=== PATIENT | female | born 1960 | race Caucasian/White ===

== ENCOUNTER 2019-08-25 14:16 | Emergency (ER) | payer MEDICARE, OTHER ==
[~2019-08-25] VITALS: Ht 165.1 cm; Wt 110.0 kg
[~2019-08-25 14:16] MED LIST: CHOL100010 PO; OMEP-84 PO; SIMV5TAB58 PO; ZES10T PO; [UNRECOGNIZED DRUG - CODE] PO
[2019-08-25 15:05] VITALS: BP 155/91
[2019-08-25] MEDS ORDERED: GABA-532 PO (16:03)
== END 2019-08-25 16:23 | disposition home or self-care (01) ==
LOC: ER 14:16
DX: G56.03 Carpal tunnel syndrome, bilateral upper limbs (principal); Z88.1 Allergy status to other antibiotic agents; Z79.899 Other long term (current) drug therapy
CPT/HCPCS: 29125; 99283